=== PATIENT | male | born 1940 | race Caucasian/White ===

== ENCOUNTER 2017-11-01 07:33 | Emergency (ER) | payer MEDICARE ==
[~2017-11-01] VITALS: Ht 177.8 cm; Wt 82.0 kg
[~2017-11-01 07:33] MED LIST: CIPR500T4 PO; HYDR10TA16 PO; PYRI200T4 PO; PYRI50TA PO; ZOVI400T15 PO
[2017-11-01 07:44] VITALS: BP 175/97; PULSE 70; RESP 16; TEMP 98.1; O2SAT 95
--- NOTE | 2017-11-01 08:04 | PD ---
HPI Chief Complaint: Oral / Dental Pain or Problem Time Seen by Provider: 08:01 Travel History International Travel<30 days: No Contact w/Intl Traveler<30days: No Traveled to known affect area: No History of Present Illness HPI Patient comes in complaining of right lower gum area swelling has been increasing in size since Thursday, he is not on any antibiotic medications. Patient denies any alleviating factors. States that eating and chewing makes it worse. Patient also denies any associated factors such as fever, rash, nausea, vomiting, diarrhea, chest pain, shortness of breath. States allergy to penicillin Past medical history significant for neuropathy, hernia repair, bladder tumor, PFSH Past Medical History Cancer: No Cardiovascular Problems: No Diabetes: No Diminished Hearing: No Genitourinary: Yes (HERPES, BLADDER TUMOR ) Hepatitis: No Hiatal Hernia: No Medical other: Yes (BLADDER TUMOR) Neurologic: Yes (NEUROPATHY) Respiratory: No Immunizations Current: Yes Thyroid Disease: No Tetanus Vaccination: > 5 Years Influenza Vaccination: No Past Surgical History Abdominal Surgery: Yes (HERNIA REPAIR) Genitourinary Surgery: Yes (BLADDER SURGERY - TUMOR REMOVED) Pacemaker: No Social History Alcohol Use: No Tobacco Use: No (QUIT LONG TIME AGO) Substance Use: No Allergies-Medications (Allergen,Severity, Reaction): Coded Allergies: penicillin G (Unverified Allergy, Severe, SWELLING, 11/01/17) Reported Meds & Prescriptions Reported Meds & Active Scripts Active No Active Prescriptions or Reported Medications Review of Systems General / Constitutional: No: Fever Eyes: No: Visual changes HENT: Positive: Other (Jaw swelling) Cardiovascular: No: Chest Pain or Discomfort Respiratory: No: Shortness of Breath Gastrointestinal: No: Abdominal Pain Genitourinary: No: Dysuria Musculoskeletal: No: Pain Skin: No Rash Neurologic: No: Weakness Psychiatric: No: Depression Endocrine: No: Polydipsia Hematologic/Lymphatic: No: Easy Bruising Physical Exam Narrative GENERAL: SKIN: Warm and dry. HEAD: Atraumatic. Normocephalic. EYES: Pupils equal and round. No scleral icterus. No injection or drainage. ENT: No nasal bleeding or discharge. Mucous membranes pink and moist. Right mandibular M2 region is tooth decay as well as medial aspect of the gingiva has a small dime size edema without fluctuance NECK: Trachea midline. No JVD. No lymphadenopathy CARDIOVASCULAR: Regular rate and rhythm. RESPIRATORY: No accessory muscle use. Clear to auscultation. Breath sounds equal bilaterally. GASTROINTESTINAL: Abdomen soft, non-tender, nondistended. MUSCULOSKELETAL: Extremities without clubbing, cyanosis, or edema. No obvious deformities. NEUROLOGICAL: Awake and alert. No obvious cranial nerve deficits. Motor grossly within normal limits. Five out of 5 muscle strength in the arms and legs. Normal speech. PSYCHIATRIC: Appropriate mood and affect; insight and judgment normal. Data Data Last Documented VS Vital Signs Date Time Temp Pulse Resp B/P (MAP) Pulse Ox O2 Delivery O2 Flow Rate FiO2 11/01/17 07:44 98.1 70 16 175/97 (123) 95 MDM Medical Decision Making Medical Screen Exam Complete: Yes Emergency Medical Condition: Yes Medical Record Reviewed: Yes Differential Diagnosis Tooth decay versus toothache versus dental abscess versus gingivitis Narrative Course Clinically the patient has dental caries and decay with early dental abscess. Patient will be discharged on p.o. antibiotics Diagnosis Primary Impression: Early dental abscess right M2 mandibular Patient Instructions: Dental Abscess (GEN), General Instructions Scripts Ciprofloxacin (Cipro) 500 Mg Tab 500 MG PO BID for Infection for 7 Days, #14 TAB 0 Refills Prov: Kalpesh Stevenson MD 11/01/17 Disposition: 01 DISCHARGE HOME Condition: Stable Kalpesh Stevenson MD Nov 01, 2017 08:04
[2017-11-01] MEDS ORDERED: CIPR-9 PO (08:19)
[2017-11-01] MEDS ORDERED: CIPROFLOXACIN 500 MG TAB PO ONE (08:30)
== END 2017-11-01 08:29 | disposition home or self-care (01) ==
LOC: NEPE 07:33
DX: K04.7 Periapical abscess without sinus (principal); K02.9 Dental caries, unspecified; Z88.0 Allergy status to penicillin
CPT/HCPCS: 99283